=== PATIENT | male | born 1980 | race Caucasian/White ===

== ENCOUNTER 2023-01-15 06:05 | Day surgery (SDC) | payer BC, SELFPAY ==
[2023-01-15 06:55] VITALS: BP 133/81; PULSE 62; RESP 18; TEMP 36.8; O2SAT 96
[2023-01-15 07:00] VITALS: BMI 25.9
[2023-01-15] MEDS: LACTATED RINGERS 1000 ML 1,000 ML 100 ML IV (07:00)
[2023-01-15] MEDS: SODIUM CHLORIDE 0.9 % (FLUSH) 10 ML SYRINGE IVF (07:00)
[2023-01-15] MEDS: CEFAZOLIN 2 GM INJ IVP (07:44)
[2023-01-15] MEDS: BUPIVACAINE 0.25% 30 ML INJECTION (08:08)
[2023-01-15 08:19] VITALS: BP 101/61; PULSE 52; RESP 12; TEMP 36.4; O2SAT 96
--- NOTE | 2023-01-15 08:23 | W.ANESCHARGE ---
Anesthesia Charges Start Date/Time Anesthesia Start Date: 01/15/23 Anesthesia Start Time: 07:36 Stop Date/Time Anesthesia Stop Date: 01/15/23 Anesthesia Stop Time: 08:24
--- NOTE | 2023-01-15 08:25 | PM.GSPRC ---
Operative Note Pre-op diagnosis: Mass of the forehead Post-op diagnosis: Same, lipoma Type of Procedure: Excision of forehead lipoma, 2.5cm x 1.5cm Indications: Patient presented to clinic with a mass of the forehead that had mary present for many years. Risks and benefits of excision were discussed at length with the patient. Given the location of the lesion and size the decision was made to proceed with removal in the OR. All questions and concerns were addressed with patient agreeing to proceed. Procedure Description: After discussing the risks and benefits of the procedure, the patient signed informed consent.? The operative site was marked and the patient was brought to the operating room and placed on the operating table in supine position.? Care was taken to pad the patient's pressure points.?? The patient was then given sedation by anesthesia.?? The operative site was then prepped and draped in the usual sterile fashion.? A time-out was then performed. Sterile dressings were then applied. The surgical field was anesthetized with 1% lidocaine. A 1 cm incision was made on the superior forehead. Dissection was carried down sharply through subcutaneous tissues. Using sharp dissection I tunneled inferior to a subcutaneous mass. Findings were consistent with a lipoma. The muscle was incised and the surrounding attachments around the lipoma sharply incised. The mass was removed in its entirety and measured 2.5 cm x 1.5 cm in size. Characteristics of the lesion were consistent with benign lipoma and it was passed off to the back table for disposal. The incision was irrigated and muscle brought together with running 3-0 vicryl. The incision was closed with running 5-0 monocryl. A steri strip was applied. ? The patient was then woken and transported to the recovery area in stable condition. ? The patient tolerated the procedure well. Findings: benign lipoma of the forehead Anesthesia: MAC and local Surgeon: Ann Marlow MD Estimated blood loss (mL): 1 Condition: stable Disposition: same day Date of procedure: 01/15/23
--- NOTE | 2023-01-15 11:36 | W.ANESCHARGE ---
Anesthesia Charges Start Date/Time Anesthesia Start Date: 01/15/23 Anesthesia Start Time: 07:36 Stop Date/Time Anesthesia Stop Date: 01/15/23 Anesthesia Stop Time: 08:24
== END 2023-01-15 09:09 | disposition home or self-care (01) ==
PROVIDERS: PCP Family Medicine; Visit Provider Surgery
PROC: (CPT 21012; principal; 2023-01-15 07:30)
DX: D17.0 Benign lipomatous neoplasm of skin and subcutaneous tissue of head, face and neck (principal)
CPT/HCPCS: 21012; 00300; J0665; J0690; J1100; J2250; J2405; J2704; J3010; J7120